=== PATIENT | male | born 1960 | race Caucasian/White ===

== ENCOUNTER 2017-04-14 13:21 | Emergency (ER) | payer OTHER ==
[~2017-04-14] VITALS: Ht 172.7 cm; Wt 66.2 kg
[2017-04-14] MEDS ORDERED: TRAZODONE 50MG TABLETS (13:29)
[2017-04-14] MEDS ORDERED: LORAZEPAM 0.5 MG (13:29)
[2017-04-14] MEDS ORDERED: ESCITALOPRAM 10 MG TABLET (13:29)
[2017-04-14] MEDS ORDERED: CLONAZEPAM 1MG TABLETS (13:29)
--- NOTE | 2017-04-14 13:37 | NUR ---
PT IS IN ROOM #2A, WAITING FOR ER MD EVALUATION.
--- NOTE | 2017-04-14 13:58 | NUR ---
DR PARR EVALUATED THE PT.
[2017-04-14] MEDS ORDERED: HYDROCODONE/APAP 5-325MG TABLET PO ONE (14:11)
[2017-04-14] MEDS ORDERED: predniSONE 20 MG TABLET PO ONE (14:15)
[2017-04-14] MEDS ORDERED: predniSONE 10 MG TABLET ONE (14:33)
[2017-04-14] MEDS ORDERED: HYDROCODONE/APAP 5-325MG TABLET ONE (14:33)
[2017-04-14] MEDS ORDERED: predniSONE 50 MG TABLET ONE (14:33)
--- NOTE | 2017-04-14 14:44 | NUR ---
Patient discharged to home in stable conditon. Written and verbal after care instructions given. Patient verbalizes understanding of instructions. Stressed follow up with pmd/ortho.
== END 2017-04-14 14:45 | disposition home or self-care (01) ==
LOC: ER 13:21
DX: S46.911A Strain of unspecified muscle, fascia and tendon at shoulder and upper arm level, right arm, initial encounter (principal); M77.9 Enthesopathy, unspecified; I34.1 Nonrheumatic mitral (valve) prolapse; X50.9XXA Other and unspecified overexertion or strenuous movements or postures, initial encounter; Y93.89 Activity, other specified; Y92.89 Other specified places as the place of occurrence of the external cause; Y99.8 Other external cause status
CPT/HCPCS: 93005; 99283; A4663; J7512 ×2

== ENCOUNTER 2018-12-22 14:25 | Emergency (ER) | payer BC, OTHER ==
[~2018-12-22] VITALS: Ht 172.7 cm; Wt 67.1 kg
[~2018-12-22 14:25] MED LIST: CLONAZEPAM 1MG TABLETS; ESCITALOPRAM 10 MG TABLET; LORAZEPAM 0.5 MG; TRAZODONE 50MG TABLETS
[2018-12-22] MEDS ORDERED: ONDANSETRON ODT 4 MG TAB.RAPDIS ONE (14:58)
[2018-12-22] MEDS ORDERED: ONDANSETRON ODT 4 MG TAB.RAPDIS SL ONE (15:00)
--- NOTE | 2018-12-22 15:00 | NUR ---
Patient discharged to home in stable conditon. Written and verbal after care instructions given. Patient verbalizes understanding of instructions.PT WALKS IN STEADY GAIT.
== END 2018-12-22 15:03 | disposition home or self-care (01) ==
LOC: ER 14:25
DX: R42 Dizziness and giddiness (principal); R11.0 Nausea; F32.9 Major depressive disorder, single episode, unspecified; F41.9 Anxiety disorder, unspecified; Z79.899 Other long term (current) drug therapy
CPT/HCPCS: A4663; Q0162

== ENCOUNTER 2022-06-10 01:20 | Emergency (ER) | payer BC, OTHER ==
[~2022-06-10] VITALS: Ht 172.7 cm; Wt 68.0 kg
[2022-06-10 02:46] LABS: *BILIRUBIN,URIN NEGATIVE (NEGATIVE); *BLOOD, URINE NEGATIVE (NEGATIVE); *CLARITY,URINE CLEAR (CLEAR); *COLOR,URINE YELLOW (YELLOW); *KETONES,URINE NEGATIVE (NEGATIVE); *UROBILINOGEN,URINE 0.2 E.U./dl (NORMAL); LEUKOCYTE ESTERASE ,URINE NEGATIVE (NEGATIVE); NITRITE, URINE NEGATIVE (NEGATIVE); UGLUCOSE NEGATIVE (NEGATIVE)
--- NOTE | 2022-06-10 03:01 | NUR ---
Patient discharged to home in stable condition. Written and verbal after care instructions given. Patient verbalizes understanding of instructions. Stressed follow up or return to ER for worsening s/s. Patient walked out with steady gait accompained by .
[2022-06-10 03:59] VITALS: BP 122/72
== END 2022-06-10 03:50 | disposition home or self-care (01) ==
LOC: ER 01:20
DX: R33.9 Retention of urine, unspecified (principal); F31.9 Bipolar disorder, unspecified; G47.00 Insomnia, unspecified; Z79.899 Other long term (current) drug therapy
CPT/HCPCS: 51702; A4663

== ENCOUNTER 2022-06-10 11:25 | Emergency (ER) | payer BC ==
[~2022-06-10] VITALS: Ht 172.7 cm; Wt 68.0 kg
--- NOTE | 2022-06-10 12:06 | NUR ---
PT IS IN ROOM #1A. DR SMITH EVALUATED THE PT.
[2022-06-10 12:39] LABS: *BILIRUBIN,URIN NEGATIVE (NEGATIVE); *BLOOD, URINE 2+ (NEGATIVE); *CLARITY,URINE CLEAR (CLEAR); *COLOR,URINE YELLOW (YELLOW); *KETONES,URINE NEGATIVE (NEGATIVE); *UROBILINOGEN,URINE 0.2 E.U./dl (NORMAL); LEUKOCYTE ESTERASE ,URINE NEGATIVE (NEGATIVE); NITRITE, URINE NEGATIVE (NEGATIVE); UGLUCOSE NEGATIVE (NEGATIVE)
[2022-06-10 13:59] LABS: BACTERIA,URINE NONE SEEN /HPF (NONE SEEN); SQUAMOUS EPITHELIAL CELL,UR NONE SEEN /HPF (NONE SEEN); WBC,URINE NONE SEEN /HPF (0-3)
--- NOTE | 2022-06-10 14:03 | NUR ---
PT WAS D/C'd TO HOME. D/C INSTRUCTIONS GIVEN TO THE PT BY DR SMITH.
[2022-06-10 14:07] VITALS: BP 136/78
== END 2022-06-10 14:08 | disposition home or self-care (01) ==
LOC: ER 11:28
DX: R33.9 Retention of urine, unspecified (principal); R10.30 Lower abdominal pain, unspecified; F31.9 Bipolar disorder, unspecified; Z79.899 Other long term (current) drug therapy; N40.0 Benign prostatic hyperplasia without lower urinary tract symptoms
CPT/HCPCS: 51702; A4663

== ENCOUNTER 2022-12-31 20:57 | Inpatient (IN) | payer OTHER, BC ==
[~2022-12-31] VITALS: Ht 172.7 cm; Wt 72.6 kg
[2022-12-31] MEDS ORDERED: HALOPERIDOL LACTATE 5 MG/1 ML VIAL ONE (21:09)
[2022-12-31] MEDS ORDERED: IV NORMAL SALINE 1000 ML BAG IV ONE (21:15)
[2022-12-31] MEDS ORDERED: HALOPERIDOL LACTATE 5 MG/1 ML VIAL IM ONE (21:15)
[2022-12-31] MEDS ORDERED: levoFLOXacin 750MG/D5W 150 ML IV ONE ×2 (21:15→21:45)
[2022-12-31 21:23] LABS: BASOPHILS # (AUTO) 0.1 K/UL (0.0-0.2); BASOPHILS % (AUTO) 0.4 % (0.0-2.0); HEMATOCRIT 45.5 % (36.7-47.1); LYMPHOCYTES % (AUTO) 7.6 % (20.5-51.5); MEAN CORPUSCULAR HEMOGLOBIN 30.7 uug (23.8-33.4); MEAN CORPUSCULAR HGB CONC 33 g/dL (32.5-36.3); MEAN CORPUSCULAR VOLUME 93.4 fL (73.0-96.2); MONOCYTES # (AUTO) 1.2 K/uL (0.1-1.30); MONOCYTES % (AUTO) 9.2 % (0.0-11.0); NEUTROPHILS % (AUTO) 82.8 % (38.5-71.5); PLATELET COUNT (AUTO) 171 K/uL (152-348); RED BLOOD CELL COUNT(AUTO) 4.87 MIL/uL (4.06-5.63); RED CELL DISTRIBUTION WIDTH 13.4 % (12.1-16.2); WHITE BLOOD COUNT (AUTO) 13.3 K/uL (3.6-10.2)
[2022-12-31 21:37] LABS: DIFFERENTIAL COMMENT 1
[2022-12-31 21:39] LABS: CALCIUM 9.7 mg/dL (8.5-10.1); CARBON DIOXIDE 26 mmol/L (21-32); CHLORIDE 104 mmol/L (98-107); CREATININE 2.2 mg/dL (0.6-1.3); GLUCOSE 153 mg/dL (74-106); POTASSIUM 5.2 mmol/L (3.5-5.1); SODIUM SERUM 141 mmol/L (136-145); UREA NITROGEN, BLOOD 38 mg/dL (7-18)
[2022-12-31 21:49] LABS: LACTIC ACID 4.8 mmol/L (0.4-2.0)
[2022-12-31 21:52] LABS: ALANINE AMINOTRANSFERASE 45 U/L (16-63); ALBUMIN 3.3 g/dL (3.4-5.0); ALKALINE PHOSPHATASE 68 U/L (50-136); ASPARTATE AMINOTRANSFERASE 106 U/L (15-37); BILIRUBIN,DIRECT 0.2 mg/dL (0.0-0.2); BILIRUBIN,TOTAL 0.5 mg/dL (0.2-1.0); NT-PRO BNP 4985 pg/mL (0-125); TOTAL PROTEIN, SERUM 6.4 g/dL (6.4-8.2)
[2022-12-31] MEDS ORDERED: ONDANSETRON 4 MG/2 ML VIAL IV ONE (22:00)
[2022-12-31] MEDS ORDERED: IV NS 1000 ML 1,000 ML IV ONE (22:00)
[2022-12-31] MEDS ORDERED: IV NORMAL SALINE 500 ML IV ONE (22:00)
[2022-12-31] MEDS ORDERED: ONDANSETRON 4 MG/2 ML VIAL ONE (22:02)
[2022-12-31] MEDS ORDERED: LORAZEPAM 2 MG/1 ML VIAL ONE (22:04)
[2022-12-31 22:07] LABS: ACETAMINOPHEN < 2.0 ug/mL (10-30)
[2022-12-31] MEDS ORDERED: ZOLP10TA2 PO (22:14)
[2022-12-31] MEDS ORDERED: LORAZEPAM 2 MG/1 ML VIAL IV ONE (22:15)
[2022-12-31 22:36] LABS: ABG BASE EXCESS -5.1 mmol/L; ABG HCO3 21.8 mmol/L; ABG PCO2 47.4 mmHg (35.0-45.0); ABG PO2 96.6 mmHg (75.0-100.0); ABG SITE RIGHT BRACHIAL; ABG TOTAL HEMOGLOBIN 14.4 G/dL (13.5-18.0); COHb 0.6 % (0.5-1.5); MetHb 0.3 % (0.0-1.5); O2Hb 96.1 % (94.0-97.0)
[2022-12-31] MEDS ORDERED: OLANZAPINE 10 MG VIAL IM ONE ×2 (23:00)
[2023-01-01] MEDS ORDERED: HALOPERIDOL LACTATE 5 MG/1 ML VIAL IM ONE (01:30)
[2023-01-01] MEDS ORDERED: diphenhydrAMINE 50 MG/1 ML VIAL IM ONE (01:30)
[2023-01-01] MEDS ORDERED: diphenhydrAMINE 50 MG/1 ML VIAL ONE (01:31)
[2023-01-01] MEDS ORDERED: HALOPERIDOL LACTATE 5 MG/1 ML VIAL ONE (01:31)
[2023-01-01 03:18] LABS: *BILIRUBIN,URIN NEGATIVE (NEGATIVE); *BLOOD, URINE 2+ (NEGATIVE); *CLARITY,URINE CLEAR (CLEAR); *COLOR,URINE YELLOW (YELLOW); *KETONES,URINE TRACE (NEGATIVE); *PROTEIN,URINE 1+ (NEGATIVE); *UROBILINOGEN,URINE 0.2 E.U./dl (NORMAL); LEUKOCYTE ESTERASE ,URINE NEGATIVE (NEGATIVE); NITRITE, URINE NEGATIVE (NEGATIVE); PH,URINE 5.5 (5.0-8.0); UGLUCOSE NEGATIVE (NEGATIVE)
[2023-01-01 03:25] LABS: BACTERIA,URINE NONE SEEN /HPF (NONE SEEN); SQUAMOUS EPITHELIAL CELL,UR NONE SEEN /HPF (NONE SEEN); WBC,URINE 0-3 /HPF (0-3)
[2023-01-01 03:27] LABS: *AMPHETAMINE, URINE NEGATIVE (NEGATIVE); *BARBITURATE, URINE NEGATIVE (NEGATIVE); *BENZODIAZEPINE, URINE POSITIVE (NEGATIVE); *CANNABINOID, URINE NEGATIVE (NEGATIVE); *COCCAINE, URINE NEGATIVE (NEGATIVE); *OPIATE, URINE NEGATIVE (NEGATIVE); *PHENCYCLIDINE SCREEN,URINE NEGATIVE (NEGATIVE); FENTANYL, URINE NEGATIVE (NEGATIVE)
[2023-01-01] MEDS ORDERED: ACETAMINOPHEN 650 MG SUPP.RECT RC PRN (03:45)
[2023-01-01] MEDS ORDERED: REMEDY ESSENTIAL ZINC PASTE 113 GM TP PRN (03:45)
[2023-01-01] MEDS ORDERED: ONDANSETRON 4 MG/2 ML VIAL IV PRN (03:45)
[2023-01-01] MEDS: IV 1/2NS 1000 ML 1,000 ML IV PRN ×2 (04:31→17:34)
[2023-01-01 04:58] LABS: BASOPHILS % (AUTO) 0.3 % (0.0-2.0); HEMATOCRIT 40.2 % (36.7-47.1); HEMOGLOBIN 13.7 g/dL (12.5-16.3); LYMPHOCYTES # (AUTO) 1.1 K/uL (0.8-4.8); LYMPHOCYTES % (AUTO) 13.5 % (20.5-51.5); MEAN CORPUSCULAR HEMOGLOBIN 31.4 uug (23.8-33.4); MEAN CORPUSCULAR HGB CONC 34 g/dL (32.5-36.3); MEAN CORPUSCULAR VOLUME 92.2 fL (73.0-96.2); MONOCYTES # (AUTO) 0.7 K/uL (0.1-1.30); MONOCYTES % (AUTO) 8.4 % (0.0-11.0); NEUTROPHILS # (AUTO) 6.5 K/uL (1.8-8.9); NEUTROPHILS % (AUTO) 77.8 % (38.5-71.5); PLATELET COUNT (AUTO) 126 K/uL (152-348); RED BLOOD CELL COUNT(AUTO) 4.36 MIL/uL (4.06-5.63); RED CELL DISTRIBUTION WIDTH 13.3 % (12.1-16.2); WHITE BLOOD COUNT (AUTO) 8.3 K/uL (3.6-10.2)
[2023-01-01 05:12] LABS: CREATININE 1.2 mg/dL (0.6-1.3); POTASSIUM 4.9 mmol/L (3.5-5.1)
[2023-01-01 05:25] LABS: THYROID STIMULATING HORMONE 2.913 mIU/mL (0.358-3.740)
[2023-01-01 05:31] LABS: ALBUMIN 2.6 g/dL (3.4-5.0); BILIRUBIN,TOTAL 0.5 mg/dL (0.2-1.0); MAGNESIUM 1.9 mg/dL (1.8-2.4); TOTAL PROTEIN, SERUM 5.7 g/dL (6.4-8.2)
[2023-01-01 05:41] LABS: DIFFERENTIAL COMMENT 1
[2023-01-01 09:17] VITALS: BP 114/69; TEMP 98.4; O2SAT 95
[2023-01-01] MEDS ORDERED: ESCI10TA PO (10:04)
[2023-01-01] MEDS ORDERED: QUET300T2 PO (10:04)
[2023-01-01] MEDS ORDERED: LAMO150T6 PO (10:04)
[2023-01-01] MEDS ORDERED: ESCI20TA PO (10:06)
[2023-01-01] MEDS: PANTOPRAZOLE SODIUM 40 MG VIAL IV SCH (10:51)
[2023-01-01 11:49] VITALS: BP 129/83; TEMP 97.6; O2SAT 96
[2023-01-01] MEDS ORDERED: PIPERACILLIN SODIUM/TAZOBACTAM 3.375 G in IV DEXTROSE 5% 50 ML IV SCH (12:00)
[2023-01-01] MEDS: PIPERACILLIN SODIUM/TAZOBACTAM 3.375 G in IV DEXTROSE 5% 100 ML IV SCH ×2 (13:15→21:34)
[2023-01-01 15:42] VITALS: BP 126/72; TEMP 98.8; O2SAT 98
[2023-01-01 18:08] VITALS: O2SAT 96
[2023-01-01 19:55] VITALS: BP 119/72; TEMP 98.8; O2SAT 98
[2023-01-02] VITALS (10 sets, daily range): BP systolic 108–130; BP diastolic 61–78; TEMP 97.6–99; O2SAT 82–99
[2023-01-02 00:20] LABS: ABG BASE EXCESS 0.2 mmol/L; ABG HCO3 26.3 mmol/L; ABG PCO2 48.3 mmHg (35.0-45.0); ABG PH 7.354 (7.350-7.450); ABG PO2 73.4 mmHg (75.0-100.0); ABG SITE RIGHT RADIAL; ABG TOTAL HEMOGLOBIN 14.6 G/dL (13.5-18.0); COHb 0.5 % (0.5-1.5); MetHb 0.2 % (0.0-1.5); O2Hb 94.8 % (94.0-97.0)
[2023-01-02] MEDS: PIPERACILLIN SODIUM/TAZOBACTAM 3.375 G in IV DEXTROSE 5% 100 ML IV SCH ×3 (05:11→21:19)
[2023-01-02 07:35] LABS: BASOPHILS % (AUTO) 0.3 % (0.0-2.0); EOSINOPHILS % (AUTO) 0.5 % (0.0-7.0); HEMATOCRIT 37.8 % (36.7-47.1); HEMOGLOBIN 13.2 g/dL (12.5-16.3); LYMPHOCYTES # (AUTO) 0.8 K/uL (0.8-4.8); LYMPHOCYTES % (AUTO) 9.6 % (20.5-51.5); MEAN CORPUSCULAR HEMOGLOBIN 31.7 uug (23.8-33.4); MEAN CORPUSCULAR HGB CONC 35 g/dL (32.5-36.3); MEAN CORPUSCULAR VOLUME 90.5 fL (73.0-96.2); MONOCYTES # (AUTO) 0.5 K/uL (0.1-1.30); MONOCYTES % (AUTO) 6.1 % (0.0-11.0); NEUTROPHILS # (AUTO) 6.6 K/uL (1.8-8.9); NEUTROPHILS % (AUTO) 83.5 % (38.5-71.5); PLATELET COUNT (AUTO) 129 K/uL (152-348); RED BLOOD CELL COUNT(AUTO) 4.18 MIL/uL (4.06-5.63); WHITE BLOOD COUNT (AUTO) 7.9 K/uL (3.6-10.2)
[2023-01-02 07:36] LABS: DIFFERENTIAL COMMENT 1
[2023-01-02 07:52] LABS: CALCIUM 8.7 mg/dL (8.5-10.1); CREATININE 1.1 mg/dL (0.6-1.3); MAGNESIUM 1.7 mg/dL (1.8-2.4); PHOSPHOROUS 2.7 mg/dL (2.5-4.9); POTASSIUM 3.8 mmol/L (3.5-5.1)
[2023-01-02] MEDS: PANTOPRAZOLE SODIUM 40 MG VIAL IV SCH (08:15)
[2023-01-02] MEDS: MAGNESIUM SULFATE/D5W 100 ML IV SCH ×2 (09:20→10:07)
[2023-01-02] MEDS: ACETAMINOPHEN 325 MG TABLET PO PRN (10:21)
[2023-01-02] MEDS: IV 1/2NS 1000 ML 1,000 ML IV PRN (17:18)
[2023-01-03] VITALS: BP 120/65; TEMP 98.7; O2SAT 95
[2023-01-03 00:21] VITALS: O2SAT 96
[2023-01-03 04:00] VITALS: BP 121/66; TEMP 98.6; O2SAT 96
[2023-01-03] MEDS: PIPERACILLIN SODIUM/TAZOBACTAM 3.375 G in IV DEXTROSE 5% 100 ML IV SCH ×3 (06:05→21:34)
[2023-01-03] MEDS: IV 1/2NS 1000 ML 1,000 ML IV PRN ×2 (06:05→16:38)
[2023-01-03] MEDS: PANTOPRAZOLE SODIUM 40 MG TABLET.DR PO SCH (06:09)
[2023-01-03 08:22] VITALS: BP 116/71; TEMP 98.9; O2SAT 98
[2023-01-03 15:18] VITALS: BP 113/68; TEMP 98; O2SAT 96
[2023-01-03] MEDS: LAMOTRIGINE 100 MG TABLET PO SCH (16:45)
[2023-01-03] MEDS: OLANZAPINE 5 MG TABLET PO PRN (16:59)
[2023-01-03 20:24] VITALS: BP 119/80; TEMP 97.7; O2SAT 95
[2023-01-03] MEDS: ZOLPIDEM 5 MG TABLET PO PRN (21:09)
[2023-01-03] MEDS: ACETAMINOPHEN 325 MG TABLET PO PRN (22:01)
[2023-01-03] MEDS ORDERED: TEMAZEPAM 15 MG CAPSULE PO ONE (23:15)
[2023-01-04] MEDS: IV 1/2NS 1000 ML 1,000 ML IV PRN ×2 (05:57→20:39)
[2023-01-04] MEDS: PIPERACILLIN SODIUM/TAZOBACTAM 3.375 G in IV DEXTROSE 5% 100 ML IV SCH ×3 (05:59→23:12)
[2023-01-04 06:31] VITALS: BP 116/75; TEMP 97.9; O2SAT 96
[2023-01-04] MEDS: PANTOPRAZOLE SODIUM 40 MG TABLET.DR PO SCH (06:31)
[2023-01-04 07:30] VITALS: BP 127/81; TEMP 97.8; O2SAT 99
[2023-01-04] MEDS: LAMOTRIGINE 100 MG TABLET PO SCH ×2 (09:00→17:22)
[2023-01-04] MEDS: OLANZAPINE 5 MG TABLET PO PRN ×2 (10:02→17:22)
[2023-01-04 12:00] VITALS: BP 116/82; TEMP 97.6; O2SAT 94
[2023-01-04] MEDS ORDERED: LORAZEPAM 1 MG TABLET PO ONE (12:30)
[2023-01-04] MEDS: GLUCERNA SHAKE 237 ML CAN PO SCH (17:22)
[2023-01-04 20:00] VITALS: BP 120/79; TEMP 98.4; O2SAT 96
[2023-01-05 05:45] VITALS: BP 121/73; TEMP 98.4; O2SAT 99
[2023-01-05] MEDS: PIPERACILLIN SODIUM/TAZOBACTAM 3.375 G in IV DEXTROSE 5% 100 ML IV SCH ×3 (06:06→22:00)
[2023-01-05] MEDS: PANTOPRAZOLE SODIUM 40 MG TABLET.DR PO SCH (06:47)
[2023-01-05 08:01] VITALS: BP 126/75; TEMP 98.2; O2SAT 95
[2023-01-05] MEDS: LAMOTRIGINE 100 MG TABLET PO SCH ×2 (08:07→17:29)
[2023-01-05] MEDS: GLUCERNA SHAKE 237 ML CAN PO SCH ×2 (08:07→17:29)
[2023-01-05 08:17] LABS: BASOPHILS % (AUTO) 0.4 % (0.0-2.0); EOSINOPHILS # (AUTO) 0.2 K/uL (0.0-0.7); EOSINOPHILS % (AUTO) 3.3 % (0.0-7.0); HEMATOCRIT 38.5 % (36.7-47.1); HEMOGLOBIN 13.4 g/dL (12.5-16.3); LYMPHOCYTES % (AUTO) 13.9 % (20.5-51.5); MEAN CORPUSCULAR HEMOGLOBIN 31.6 uug (23.8-33.4); MEAN CORPUSCULAR HGB CONC 35 g/dL (32.5-36.3); MEAN CORPUSCULAR VOLUME 90.8 fL (73.0-96.2); MONOCYTES # (AUTO) 0.5 K/uL (0.1-1.30); MONOCYTES % (AUTO) 7.8 % (0.0-11.0); NEUTROPHILS # (AUTO) 5.2 K/uL (1.8-8.9); NEUTROPHILS % (AUTO) 74.6 % (38.5-71.5); PLATELET COUNT (AUTO) 185 K/uL (152-348); RED BLOOD CELL COUNT(AUTO) 4.24 MIL/uL (4.06-5.63); RED CELL DISTRIBUTION WIDTH 12.7 % (12.1-16.2); WHITE BLOOD COUNT (AUTO) 6.9 K/uL (3.6-10.2)
[2023-01-05 08:29] LABS: DIFFERENTIAL COMMENT 1
[2023-01-05 08:36] LABS: ALBUMIN 2.4 g/dL (3.4-5.0); BILIRUBIN,TOTAL 0.5 mg/dL (0.2-1.0); CALCIUM 9.2 mg/dL (8.5-10.1); CREATININE 0.9 mg/dL (0.6-1.3); PHOSPHOROUS 4.3 mg/dL (2.5-4.9); POTASSIUM 3.3 mmol/L (3.5-5.1); TOTAL PROTEIN, SERUM 5.9 g/dL (6.4-8.2)
[2023-01-05] MEDS ORDERED: POTASSIUM CHLORIDE 20 MEQ TAB.PRT.SR PO ONE (09:00)
[2023-01-05 11:50] VITALS: BP 114/75; TEMP 98.1; O2SAT 95
[2023-01-05] MEDS: IV 1/2NS 1000 ML 1,000 ML IV PRN (15:14)
[2023-01-05 15:38] VITALS: BP 115/73; TEMP 97.8; O2SAT 96
[2023-01-05 20:00] VITALS: BP 138/84; TEMP 98.9; O2SAT 95
[2023-01-06] MEDS: IV 1/2NS 1000 ML 1,000 ML IV PRN ×2 (05:11→23:57)
[2023-01-06 05:30] VITALS: BP 117/74; TEMP 98.8; O2SAT 96
[2023-01-06] MEDS: PIPERACILLIN SODIUM/TAZOBACTAM 3.375 G in IV DEXTROSE 5% 100 ML IV SCH ×3 (06:01→21:55)
[2023-01-06] MEDS: PANTOPRAZOLE SODIUM 40 MG TABLET.DR PO SCH (06:50)
[2023-01-06 08:00] VITALS: BP 125/61; TEMP 98.1
[2023-01-06] MEDS: LAMOTRIGINE 100 MG TABLET PO SCH ×2 (09:27→17:18)
[2023-01-06] MEDS: GLUCERNA SHAKE 237 ML CAN PO SCH ×2 (09:28→17:19)
[2023-01-06] MEDS: OLANZAPINE 5 MG TABLET PO PRN (14:52)
[2023-01-06] MEDS: ACETAMINOPHEN 325 MG TABLET PO PRN ×2 (14:54→22:20)
[2023-01-06 15:31] VITALS: BP 116/70; TEMP 98.2; O2SAT 99
[2023-01-06 19:54] VITALS: BP 130/75; TEMP 98; O2SAT 98
[2023-01-06] MEDS: ZOLPIDEM 5 MG TABLET PO PRN (23:45)
[2023-01-07] MEDS: OLANZAPINE 5 MG TABLET PO PRN (02:45)
[2023-01-07 04:00] VITALS: BP 111/59; TEMP 98.5; O2SAT 96
[2023-01-07] MEDS: PIPERACILLIN SODIUM/TAZOBACTAM 3.375 G in IV DEXTROSE 5% 100 ML IV SCH ×2 (05:47→14:08)
[2023-01-07] MEDS: PANTOPRAZOLE SODIUM 40 MG TABLET.DR PO SCH (06:50)
[2023-01-07 08:00] VITALS: BP 125/70; TEMP 98.4; O2SAT 96
[2023-01-07] MEDS: LAMOTRIGINE 100 MG TABLET PO SCH ×2 (09:00→17:34)
[2023-01-07] MEDS: GLUCERNA SHAKE 237 ML CAN PO SCH ×2 (09:00→17:34)
[2023-01-07] MEDS: IV 1/2NS 1000 ML 1,000 ML IV PRN (14:05)
[2023-01-07 20:00] VITALS: BP 136/76; TEMP 97.8; O2SAT 98
[2023-01-07] MEDS: ZOLPIDEM 5 MG TABLET PO PRN (20:31)
[2023-01-08] MEDS: ACETAMINOPHEN 325 MG TABLET PO PRN (00:36)
[2023-01-08] MEDS: OLANZAPINE 5 MG TABLET PO PRN ×2 (01:19→01:21)
[2023-01-08] MEDS ORDERED: ZOLPIDEM 5 MG TABLET PO ONE ×2 (01:30→23:15)
[2023-01-08] MEDS: IV 1/2NS 1000 ML 1,000 ML IV PRN ×2 (03:56→18:06)
[2023-01-08 04:00] VITALS: BP 117/73; TEMP 98.1; O2SAT 97
[2023-01-08] MEDS: PANTOPRAZOLE SODIUM 40 MG TABLET.DR PO SCH (06:45)
[2023-01-08] MEDS: LAMOTRIGINE 100 MG TABLET PO SCH ×2 (08:50→18:06)
[2023-01-08] MEDS: GLUCERNA SHAKE 237 ML CAN PO SCH (08:50)
[2023-01-08 12:00] VITALS: BP 129/67; TEMP 98.6; O2SAT 99
[2023-01-08 16:00] VITALS: BP 126/75; TEMP 98.2; O2SAT 99
[2023-01-08 20:00] VITALS: BP 130/70; TEMP 97.6; O2SAT 98
[2023-01-08] MEDS: ZOLPIDEM 5 MG TABLET PO PRN (22:59)
[2023-01-09] MEDS: ACETAMINOPHEN 325 MG TABLET PO PRN ×2 (01:20→23:03)
[2023-01-09 04:00] VITALS: BP 130/72; TEMP 98.3; O2SAT 97
[2023-01-09] MEDS: PANTOPRAZOLE SODIUM 40 MG TABLET.DR PO SCH (06:26)
[2023-01-09] MEDS: LAMOTRIGINE 100 MG TABLET PO SCH ×2 (08:26→16:56)
[2023-01-09] MEDS: IV 1/2NS 1000 ML 1,000 ML IV PRN (13:10)
[2023-01-09 20:10] VITALS: BP 137/79; TEMP 98.3; O2SAT 99
[2023-01-09] MEDS: ZOLPIDEM 5 MG TABLET PO PRN (20:26)
[2023-01-09] MEDS ORDERED: ZOLPIDEM 5 MG TABLET PO PRN (21:45)
[2023-01-10] MEDS: OLANZAPINE 5 MG TABLET PO PRN (02:27)
[2023-01-10 04:26] VITALS: BP 131/77; TEMP 98.1; O2SAT 99
[2023-01-10] MEDS: PANTOPRAZOLE SODIUM 40 MG TABLET.DR PO SCH (06:26)
[2023-01-10 08:00] VITALS: BP 146/81; TEMP 97.9; O2SAT 99
[2023-01-10] MEDS: LAMOTRIGINE 100 MG TABLET PO SCH (08:39)
[2023-01-10] MEDS ORDERED: PANT40TA2 PO (14:31)
[2023-01-10] MEDS ORDERED: ZOLP5TAB2 PO (14:31)
[2023-01-10] MEDS ORDERED: ZOLPIDEM 5 MG TABLET PO SCH (21:00)
== END 2023-01-10 16:31 | DRG 917 ==
LOC: ER 21:03 → TRANSITION 01-01 03:18 → DOU3 01-01 08:19 → TELE-TD3 01-01 08:49 → TELE3 01-02 10:36 → MEDSURG3 01-03 11:20
PROVIDERS: ADMIT Nurse Practitioner Acute Care; ATTEND Nurse Practitioner Acute Care
PROC: 05H633Z Insertion of Infusion Device into Left Subclavian Vein, Percutaneous Approach (ICD-10-PCS; principal; 2023-01-01)
PROC: B547ZZA Ultrasonography of Left Subclavian Vein, Guidance (ICD-10-PCS; 2023-01-01)
DX: T42.6X1A Poisoning by other antiepileptic and sedative-hypnotic drugs, accidental (unintentional), initial encounter (principal); G92.8 Other toxic encephalopathy; I21.A1 Myocardial infarction type 2; J96.01 Acute respiratory failure with hypoxia; J69.0 Pneumonitis due to inhalation of food and vomit; J96.02 Acute respiratory failure with hypercapnia; E87.20 Acidosis, unspecified; M62.82 Rhabdomyolysis; N17.9 Acute kidney failure, unspecified; F41.9 Anxiety disorder, unspecified; Y92.009 Unspecified place in unspecified non-institutional (private) residence as the place of occurrence of the external cause; N40.1 Benign prostatic hyperplasia with lower urinary tract symptoms; R33.8 Other retention of urine; G47.00 Insomnia, unspecified; F32.9 Major depressive disorder, single episode, unspecified; R31.29 Other microscopic hematuria
CPT/HCPCS: 36415; 36600; 70450; 71045; 76770; 83605; 83735; 84100; 84443; 84484; 85025; 87040; 93005; 93307; A6213; C1758; C9113; G0378; J1200; J1630; J1956; J2060; J2358; J2405; J2543; J3475; J7040